=== PATIENT | male | born 1995 ===

== ENCOUNTER 2017-10-13 18:44 | Emergency (ER) | payer MEDICAID ==
[2017-10-13 18:59] VITALS: BP 140/91
--- NOTE | 2017-10-14 00:56 | Emergency Department Report ---
ED Extremity Problem HPI - General Chief complaint: Extremity Injury, Lower Stated complaint: SWOLLEN FEET Time Seen by Provider: 10/14/17 00:55 Source: patient Mode of arrival: Ambulatory Limitations: No Limitations - History of Present Illness Initial comments: 22-year-old -[place] male comes into the emergency room complaining of swelling and pain to his left foot times one week. Patient reports he has done nothing to make it better. Patient reports his a past medical history of overnight schizophrenic and takes Haldol. Patient reports that his mental health is managed by [facility]. BOLES Complaint: extremity pain -: week(s) (1) Location: left, toe History of Same: No Severity scale (0 -10): 10 Quality: stabbing, aching Consistency: constant Improves with: nothing Worsens with: weight bearing, palpation Associated Symptoms: denies other symptoms - Related Data Previous Rx's Medication Instructions Recorded Last Taken Type Cephalexin [Keflex] 500 mg PO BID #20 capsule 10/14/17 Unknown Rx Sulfamethoxazole/Trimethoprim 1 each PO BID #20 tablet 10/14/17 Unknown Rx [Bactrim Ds Tablet] traMADol [Ultram 50 MG tab] 50 mg PO Q6HR PRN #20 tablet 10/14/17 Unknown Rx Allergies Allergy/AdvReac Type Severity Reaction Status Date / Time No Known Allergies Allergy Verified 10/13/17 18:56 ED Review of Systems ROS: Stated complaint: SWOLLEN FEET Other details as noted in HPI Constitutional: denies: chills, fever Eyes: denies: eye pain, eye discharge, vision change ENT: denies: ear pain, throat pain Respiratory: denies: cough, shortness of breath, wheezing Cardiovascular: denies: chest pain, palpitations Endocrine: no symptoms reported Gastrointestinal: denies: abdominal pain, nausea, diarrhea Genitourinary: denies: urgency, dysuria Musculoskeletal: joint swelling (left foot between the fourth and fifth digit), arthralgia (left foot) Skin: other Neurological: denies: headache, weakness, paresthesias Psychiatric: anxiety Hematological/Lymphatic: denies: easy bleeding, easy bruising ED Past Medical Hx - Past Medical History Previous Medical History?: No - Surgical History Past Surgical History?: No - Social History Smoking Status: Never Smoker Substance Use Type: None - Medications Home Medications: Home Medications Medication Instructions Recorded Confirmed Last Taken Type Cephalexin [Keflex] 500 mg PO BID #20 capsule 10/14/17 Unknown Rx Sulfamethoxazole/Trimethoprim 1 each PO BID #20 tablet 10/14/17 Unknown Rx [Bactrim Ds Tablet] traMADol [Ultram 50 MG tab] 50 mg PO Q6HR PRN #20 tablet 10/14/17 Unknown Rx ED Physical Exam - General Limitations: No Limitations General appearance: alert, in no apparent distress - Head Head exam: Present: atraumatic, normocephalic - Eye Eye exam: Present: normal appearance - ENT ENT exam: Present: mucous membranes moist - Neck Neck exam: Present: normal inspection - Respiratory Respiratory exam: Present: normal lung sounds bilaterally. Absent: respiratory distress - Cardiovascular Cardiovascular Exam: Present: regular rate, normal rhythm. Absent: systolic murmur, diastolic murmur, rubs, gallop - GI/Abdominal GI/Abdominal exam: Present: soft, normal bowel sounds - Expanded Lower Extremity Exam Left Hip exam: Present: normal inspection Upper Leg exam: Present: normal inspection Knee exam: Present: normal inspection Lower Leg exam: Present: normal inspection Ankle exam: Present: normal inspection Foot/Toe exam: Present: tenderness, swelling, erythema Neuro vascular tendon exam: Present: no vascular compromise - Neurological Exam Neurological exam: Present: alert, oriented X3 - Psychiatric Psychiatric exam: Present: agitated, anxious - Skin Skin exam: Present: warm, rash (whitish greenish discharge between fourth and fifth digit) ED Course Vital Signs 10/13/17 18:56 Temperature 98.6 F Pulse Rate 94 H Respiratory 16 Rate Blood Pressure 140/91 O2 Sat by Pulse 95 Oximetry ED Medical Decision Making - Lab Data Result diagrams: 10/14/17 01:21 10/14/17 01:21 - Radiology Data Radiology results: report reviewed, image reviewed FINAL REPORT EXAM: XR FOOT 2V LT HISTORY: left foot swollen red possible infection TECHNIQUE: AP and lateral views left foot were obtained. FINDINGS: There is non specific soft swelling overlying the dorsal aspect of the tarsals and metatarsals. There is no evidence of fracture or osteomyelitis. Arthritic changes are not identified. IMPRESSION: Nonspecific soft swelling overlying the dorsal aspect of the tarsals metatarsals most likely representing cellulitis. No evidence of fracture or osteomyelitis. Transcribed By: RB Dictated By: THANG SHEPHERD MD Electronically Authenticated By: THANG SHEPHERD MD Signed Date/Time: 10/14/17 0125 - Medical Decision Making Patient's been evaluated by this provider fast track. CBC CMP x-ray of left foot ordered. Ultram ordered for pain. Wound Culture ordered Critical care attestation.: If time is entered above; I have spent that time in minutes in the direct care of this critically ill patient, excluding procedure time. ED Disposition Clinical Impression: Cellulitis Qualifiers: Site of cellulitis: extremity Site of cellulitis of extremity: lower extremity Laterality: left Qualified Code(s): L03.116 - Cellulitis of left lower limb Disposition: - TO HOME OR SELFCARE Is pt being admited?: No Does the pt Need Aspirin: No Condition: Stable Instructions: Cellulitis (ED) Additional Instructions: Complete antibiotics as prescribed. Take pain medication as prescribed. Follow up with her primary care provider or [facility] for further evaluation. Prescriptions: Cephalexin [Keflex] 500 mg PO BID #20 capsule Sulfamethoxazole/Trimethoprim [Bactrim Ds Tablet] 1 each PO BID #20 tablet traMADol [Ultram 50 MG tab] 50 mg PO Q6HR PRN #20 tablet PRN Reason: Pain Referrals: PRIMARY CARE, [Primary Care Provider] - 3-5 Days [facility] [Provider Group] - 3-5 Days [facility] [Outside] - 3-5 Days
[2017-10-14] MEDS ORDERED: ULTRAM PO ONE (00:58)
--- NOTE | 2017-10-14 01:31 | XRay Report ---
FINAL REPORT EXAM: XR FOOT 2V LT HISTORY: left foot swollen red possible infection TECHNIQUE: AP and lateral views left foot were obtained. FINDINGS: There is non specific soft swelling overlying the dorsal aspect of the tarsals and metatarsals. There is no evidence of fracture or osteomyelitis. Arthritic changes are not identified. IMPRESSION: Nonspecific soft swelling overlying the dorsal aspect of the tarsals metatarsals most likely representing cellulitis. No evidence of fracture or osteomyelitis.
[2017-10-14 01:38] LABS: Basophils % (Auto) 0.4 % (0.0-1.8); Eosinophils # (Auto) 0.2 K/mm3 (0.0-0.4); Eosinophils % (Auto) 1.6 % (0.0-4.3); Hematocrit 40.7 % (35.5-45.6); Hemoglobin 13.9 gm/dl (11.8-15.2); Lymphocytes # (Auto) 1.8 K/mm3 (1.2-5.4); Lymphocytes % (Auto) 16.9 % (13.4-35.0); Mean Corpuscular HGB Conc 34 % (32-34); Mean Corpuscular Hemoglobin 30 pg (28-32); Mean Corpuscular Volume 87 fl (84-94); Monocytes % (Auto) 9.2 % (0.0-7.3); Platelet Count 236 K/mm3 (140-440); Red Blood Count 4.66 M/mm3 (3.65-5.03); Red Cell Distribution Width 14.2 % (13.2-15.2)
[2017-10-14 02:08] LABS: BUN/Creatinine Ratio 13; Blood Urea Nitrogen 10 mg/dL (9-20); Calcium 9.4 mg/dL (8.4-10.2)
[2017-10-14 02:09] LABS: Alanine Aminotransferase 15 units/L (7-56); Albumin 4.1 g/dL (3.9-5); Hemolysis Index 12
== END 2017-10-14 02:30 | disposition home or self-care (01) ==
LOC: ED 18:44
DX: L03.116 Cellulitis of left lower limb (principal)
CPT/HCPCS: 36415; 80053; 85025; 87076; 87116; 87186; 99284